=== PATIENT | female | born 1965 | race African-American/Black ===

== ENCOUNTER 2017-04-18 12:05 | Inpatient (IN) | payer BC ==
[2017-04-17 14:13] VITALS: BMI 38.5
[2017-04-18] MEDS ORDERED: ACETAMINOPHEN INJECTION 100 ML IVPB ONE (13:21)
[2017-04-18] MEDS ORDERED: LIDOCAINE HCL/PF 2% SDV 5ML VIAL ONE (13:35)
[2017-04-18] MEDS ORDERED: ePHEDrine SULFATE 50 MG/1 ML AMPULE ONE (13:35)
[2017-04-18] MEDS ORDERED: DEXAMETHASONE SOD PHOSPHATE 4 MG/1 ML VIAL ONE (13:35)
[2017-04-18] MEDS ORDERED: SUCCINYLCHOLINE CHLORIDE 200 MG/10 ML VIAL ONE (13:36)
[2017-04-18] MEDS ORDERED: ROCURONIUM BROMIDE 50 MG/5 ML VIAL ONE (13:36)
[2017-04-18] MEDS ORDERED: PROPOFOL 20 ML ONE ×3 (13:36)
[2017-04-18] MEDS ORDERED: CLINDAMYCIN 900 MG PREMIX BAG IVPB ONE (14:00)
[2017-04-18] MEDS ORDERED: BUPIVACAINE HCL/PF 0.5% (5MG/ML) 10 ML VIAL IJ ONE ×2 (14:30→14:40)
[2017-04-18] MEDS ORDERED: GLYCOPYRROLATE 0.2 MG/1 ML VIAL ONE (14:35)
[2017-04-18] MEDS ORDERED: NEOSTIGMINE METHYLSULFATE 0.5 MG/ML - 10 ML MDV ONE (14:35)
[2017-04-18] MEDS ORDERED: oxyCODONE HCL 5 MG TABLET PO PRN (14:59)
[2017-04-18] MEDS ORDERED: SODIUM CHLORIDE 1,000 ML IV SCH (15:00)
[2017-04-18] MEDS ORDERED: ONDANSETRON 4 MG/2 ML VIAL IVPUSH PRN (15:01)
--- NOTE | 2017-04-18 15:15 | OP ---
Operative Note - Note: Operative Date: 04/18/17 Pre-Operative Diagnosis: Vomiting. GERD. Malfunctioning implantable device secondary to Gastric Band Operation: Removal of Gastric Band plus subcutaneous port component. Laparoscopic Lysis of Adhesions. Diagnostic Laparoscopy Findings: Gastric Band with much adhesions around upper stomach. All adhesions lysed and greater curve wrap dissected off the stomach wall Post-Operative Diagnosis: Same as Pre-op (aabdominal adhesions; fibrous capsule around stomach) Surgeon: Jesus Finn Senior [employer] Consultant: Francisco Vasquez Anesthesia: General Specimens Removed: Gastric Band plus sub-Q component Estimated Blood Loss (mls): 20 Operative Report Dictated: Yes
[2017-04-18] MEDS ORDERED: ENOXAPARIN NA (PORCINE) 40 MG/0.4 ML DISP.SYRIN SQ ONE (15:30)
--- NOTE | 2017-04-18 16:05 | OP ---
DATE OF OPERATION: 04/18/2017 PREOPERATIVE DIAGNOSES: 1. Vomiting. 2. Gastroesophageal reflux disease. 3. Malfunctioning implantable device secondary to gastric band. POSTOPERATIVE DIAGNOSES: 1. Vomiting. 2. Gastroesophageal reflux disease. 3. Malfunctioning implantable device secondary to gastric band. 4. Abdominal adhesions. PROCEDURE PERFORMED: 1. Removal of gastric band plus subcutaneous port component. 2. Laparoscopic lysis of adhesions. 3. Diagnostic laparoscopy. OPERATING SURGEON: Jesus Finn MD ACTION FINISHER: Francisco Vasquez MD ANESTHESIA: General. OPERATIVE PROCEDURE: The patient was brought into the operating room, placed on the OR table in the supine position. All precautions were taken initially including padding for the back and the feet, and Venodyne boots were placed on both lower extremities. At that point, the abdomen was prepped and draped in the usual manner. A Veress needle was placed in the left upper quadrant, and a pneumoperitoneum was established. A number 12 bladeless trocar was placed in the left upper quadrant. Through that trocar, a laparoscopic camera was placed. Under direct vision, a number 5 and 15 bladeless trocars were placed in the right upper quadrant, and a number 5 bladeless trocar was placed below the left costal margin. A Nelly retractor was then placed in the epigastrium to retract the left lobe of the liver. Patient was then placed in a 20-degree reverse Trendelenburg position by the Anesthesia Department. At this point, the band tubing going to the band was noticed, and this was followed to the band around the upper part of the stomach. With the operations and intelligence assistant surgeon retracting the band tubing to the patient's left side, the operating surgeon was able to dissect the scar tissue and the adhesions off of the band on the lesser curvature of the band. This was continued until the band on the lesser curvature was in full view. At this juncture, the operating surgeon pulled the band tubing towards the patient's right side as the operations and intelligence assistant surgeon retracted the stomach inferiorly. The scar tissues then which were the fibrous capsule and adhesions over the band on the greater curvature side were removed with electrocautery until the entire band was in full view. At this juncture, the band was then cut and sprung open, and the band was cut in two, and both pieces were removed from around the stomach and sent off the field to Pathology as specimens. Attention was now directed to the greater curvature wrap. With the operations and intelligence assistant surgeon retracting the stomach inferiorly, the operating surgeon was able to dissect the wrap from the lower part of the stomach, off the upper portion. Once this was done, the stomach now was unraveled and was in full view. At this juncture, Dr. Vasquez stepped out of the case. The operations and intelligence assistant surgeon performed an upper endoscopy. The patient had a previous history on upper endoscopy recently of having difficulty in the body and antrum, and therefore, could not proceed with a sleeve gastrectomy. The details are described in Dr. Vasquez's operative note. Essentially, no leaks were noted coming from the stomach hoffman or stomach. At this juncture, under direct vision, all trocars were removed, and pneumoperitoneum was released. Now, the number 15 trocar site was extended with a scalpel laterally, and dissection continued with electrocautery down to the fibrous capsule on the right upper quadrant port. The fibrous capsule was removed from the port, and then, the entire port was removed from the right anterior rectus muscle and sent off the field to Pathology as a specimen with the rest of the band. At this point, all trocar sites received 0.25% Marcaine, were closed with 4-0 Biosyn in subcuticular fashion. The port site first was closed with 3-0 Vicryl in interrupted fashion on the subcutaneous tissue, followed by 4-0 Biosyn in subcuticular fashion. Dressings were applied, patient awoken from anesthesia and transferred out of the operating room to the recovery room in stable condition. EXPECTED BLOOD LOSS: 20 mL Patient transferred to recovery room in stable condition. Polo [id number]
--- NOTE | 2017-04-18 16:14 | HP ---
DATE OF ADMISSION: 04/18/2017 CHIEF COMPLAINT: Vomiting, GE reflux disease, and mechanical complication of gastric band. HISTORY OF PRESENT ILLNESS: The patient is a 51-year-old woman who complained of approximately 1 year of increased vomiting and GERD secondary to gastric band. The band was placed approximately 9 years ago and was working well until the last year with difficulty had occurred. Despite multiple band adjustments in the office, the patient continued with symptoms and needed removal of the band. The patient was scheduled for sleeve gastrectomy at the same time, but because of an abnormality on the upper endoscopy, it was decided that the band would be removed at this point and the sleeve would be not followed. PAST MEDICAL HISTORY: Significant for slight asthma. PAST SURGICAL HISTORY: Besides the placement of Lap-Band in 2008, also for section x2. ALLERGIES: The patient has allergies to PENICILLIN. MEDICATIONS: Only medication is oral iron. REVIEW OF SYMPTOMS: Neurologic: Within normal limits. Cardiovascular: Within normal limits. Gastrointestinal: Positive for heartburn. Musculoskeletal: Within normal limits. Genitourinary: Within normal limits. PHYSICAL EXAMINATION: General: Awake, alert, in no acute distress. HEENT: No masses noted. Lungs: Clear bilaterally. Heart: Regular sinus rhythm. Abdomen: Soft, nontender on palpation. Well-healed surgical incisions. Extremities: No swelling. No edema noted. IMPRESSION: Vomiting, gastroesophageal reflux disease, and malfunctioning gastric band. PLAN: For removal of gastric band plus the subcutaneous port. Polo [id number]
[2017-04-18] MEDS ORDERED: PROMETHAZINE HCL 25 MG/1 ML VIAL IVPUSH PRN (16:19)
[2017-04-18] MEDS ORDERED: LACTATED RINGERS SOLUTION 1,000 ML IV SCH (16:30)
[2017-04-18 16:35] VITALS: TEMP 97.5
[2017-04-18 19:27] VITALS: BP 132/70; PULSE 80
[2017-04-18] MEDS ORDERED: FAMOTIDINE 20 MG/50 ML IVPB 20 MG/50 ML MG IVPB SCH (22:00)
--- NOTE | 2017-04-19 09:47 | OP ---
Operative Note - Note: Operative Date: 04/19/17 Pre-Operative Diagnosis: Rule out leak/obstruction Operation: EGD/upper endoscopy Post-Operative Diagnosis: Other (No leak/obstruction) Anesthesia: General Specimens Removed: None Estimated Blood Loss (mls): 0 Operative Report Dictated: Yes
--- NOTE | 2017-04-19 10:55 | OP ---
DATE OF OPERATION: 04/18/2017 SURGEON: Hair Vasquez MD PREOPERATIVE DIAGNOSIS: Rule out leak/obstruction after laparoscopic gastric band removal. POSTOPERATIVE DIAGNOSIS: No leak, no obstruction. PROCEDURE: Upper endoscopy, esophagogastroduodenoscopy. ESTIMATED BLOOD LOSS: 0 mL. DRAINS: None. ANESTHESIA: GET. REASON FOR PROCEDURE: This is a 51-year-old female who underwent laparoscopic removal of gastric band components by Dr. Jesus Finn. To further evaluate for leak or obstruction, upper endoscopy was requested. DESCRIPTION OF PROCEDURE: The endoscope was inserted into the patient's mouth, esophagus, and stomach. No leak, no obstruction was identified. The stomach was suctioned and the endoscope removed. The remainder of the procedure was completed by Dr. Finn. HAIR VASQUEZ M.D. [id number]
== END 2017-04-18 19:00 | disposition home or self-care (01) | DRG 336 ==
LOC: JSAMEDAYSX 12:05
PROVIDERS: ADMIT Surgery; ATTEND Surgery
PROC: 0DJ08ZZ Inspection of Upper Intestinal Tract, Via Natural or Artificial Opening Endoscopic (ICD-10-PCS; 2017-04-18)
PROC: 0DP64CZ Removal of Extraluminal Device from Stomach, Percutaneous Endoscopic Approach (ICD-10-PCS; principal; 2017-04-18 13:00)
PROC: 0DNW4ZZ Release Peritoneum, Percutaneous Endoscopic Approach (ICD-10-PCS; 2017-04-18 13:00)
DX: K95.09 Other complications of gastric band procedure (principal); T85.518A Breakdown (mechanical) of other gastrointestinal prosthetic devices, implants and grafts, initial encounter; K21.9 Gastro-esophageal reflux disease without esophagitis; Y83.8 Other surgical procedures as the cause of abnormal reaction of the patient, or of later complication, without mention of misadventure at the time of the procedure; K66.0 Peritoneal adhesions (postprocedural) (postinfection); R11.10 Vomiting, unspecified
CPT/HCPCS: 36415; 84703; 86850; 86900; 86901

== ENCOUNTER 2017-08-09 09:28 | Inpatient (IN) | payer BC, OTHER ==
[2017-08-08 18:07] VITALS: BMI 39.1
[2017-08-09] MEDS ORDERED: BUPIVACAINE HCL/PF 0.5% (5MG/ML) 10 ML VIAL ONE (13:13)
[2017-08-09] MEDS ORDERED: DEXAMETHASONE SOD PHOSPHATE 4 MG/1 ML VIAL ONE (13:42)
--- NOTE | 2017-08-09 13:54 | HP ---
DATE OF ADMISSION: 08/09/2017 CHIEF COMPLAINT: Morbid obesity. HISTORY OF PRESENT ILLNESS: This patient is a 51-year-old woman with a history of morbid obesity for many years despite multiple attempts at dietary weight loss. She received nutrition and psychological evaluation and clearance prior to undergoing elective sleeve gastrectomy surgery. PAST MEDICAL HISTORY: Significant for: 1. Sleep apnea. 2. Hyperlipidemia. 3. Mild asthma. 4. Iron deficiency anemia. 5. Vitamin B12 deficiency. PAST SURGICAL HISTORY: Insertion of Lap Band and removal of Lap Gastric Band. MEDICATIONS: Include: 1. Iron. 2. B12 and ascorbic acid. REVIEW OF SYSTEMS: Neurologic: Within normal limits. Pulmonary: Within normal limits. Gastrointestinal: Occasional acid reflux. Cardiovascular: Within normal limits. Musculoskeletal: Within normal limits. PHYSICAL EXAMINATION: General: A 51-year-old woman, morbidly obese, awake, alert, and in no acute distress. HEENT: No masses palpated. Lungs: Clear bilaterally. Heart: Regular sinus rhythm. Abdomen: Well-healed abdominal wall incision. Soft, nontender on palpation. Extremities: No swelling, no edema noted. IMPRESSION: Morbid obesity. PLAN: OR for laparoscopic vertical sleeve gastrectomy, possible open vertical sleeve gastrectomy. Polo [id number]
[2017-08-09] MEDS ORDERED: BUPIVACAINE HCL/PF 0.5% (5MG/ML) 10 ML VIAL IJ ONE (14:25)
--- NOTE | 2017-08-09 14:39 | OP ---
Operative Note - Note: Operative Date: 08/09/17 Pre-Operative Diagnosis: Morbid Obesity. Sleep Apnea Operation: Laparoscopic Vertical Sleeve Gastrectomy. Diagnostic Laparoscopy Findings: Greater curve sleeve gastrectomy performed with #[address] Post-Operative Diagnosis: Same as Pre-op Surgeon: Jesus Finn Application Trainer: Jair Cordero Anesthesia: General Specimens Removed: Greater curve of stomach Estimated Blood Loss (mls): 50 Operative Report Dictated: Yes
[2017-08-09] MEDS ORDERED: ONDANSETRON 4 MG/2 ML VIAL ONE (14:59)
[2017-08-09] MEDS ORDERED: METOCLOPRAMIDE HCL INJECTION 10 MG/2 ML VIAL ONE (14:59)
[2017-08-09] MEDS: METOCLOPRAMIDE HCL INJECTION 10 MG/2 ML VIAL IVPUSH SCH ×2 (15:00→21:28)
[2017-08-09 15:35] LABS: HEMATOCRIT 34.2 % (32.4-45.2); HEMOGLOBIN 11.1 GM/dL (10.7-15.3); MCHC 32.5 g/dl (32.0-36.0); MEAN CELL VOLUME 77.1 fl (80-96); MEAN PLT VOLUME 8.3 fl (7.5-11.1); PLATELET COUNT 243 K/MM3 (134-434); RBC 4.44 M/mm3 (3.60-5.2); RDW 16.3 % (11.6-15.6); WHITE BLOOD COUNT 8.7 K/mm3 (4.0-10.0)
--- NOTE | 2017-08-09 15:39 | OP ---
DATE OF OPERATION: 08/09/2017 PREOPERATIVE DIAGNOSIS: 1. Morbid obesity. 2. Sleep apnea. POSTOPERATIVE DIAGNOSIS: 1. Morbid obesity. 2. Sleep apnea. 3. Abdominal adhesions. PROCEDURE PERFORMED: 1. Laparoscopic vertical sleeve gastrectomy. 2. Laparoscopic lysis of adhesions. 3. Diagnostic laparoscopy. OPERATING SURGEON: Jesus Finn M.D. AVIONICS SYSTEMS REPAIRER SURGEON: Jair Cordero M.D. ANESTHESIA: General. OPERATIVE PROCEDURE: The patient was brought into the operating room, placed on the OR table in the supine position. All precautions were taken initially including padding for the back and the feet, and Venodyne boots were placed on both lower extremities. At that point, the abdomen was prepped and draped in the usual manner. A Veress needle was placed in the left upper quadrant, and a pneumoperitoneum was established. A number 12 bladeless trocar was placed in the left upper quadrant through the trocar, laparoscopic camera was placed. Under direct vision, a number 15 bladeless trocar was placed just in the midline in a supraumbilical position followed by a number 5 bladeless trocar in the right upper quadrant and number 5 bladeless trocar below the left costal margin. A Nelly liver retractor was then placed in the epigastrium to retract the left lobe of the liver. The patient was then placed in 20-degree reverse Trendelenburg position by anesthesia. The bougie was already placed into the upper stomach and was tested by anesthesia all the way to the distal stomach and showed that there was no obstruction, easily went into the distal antrum. At this point, the bougie was pulled back, and now the pylorus was found on the distal stomach. Then 6 cm were measured proximally and there, and at that point the operating surgeon lifted the stomach toward the anterior abdominal wall, as the tax accounting assistant surgeon retracted the gastrocolic ligament inferiorly. The Ligasure device used to dissect the gastrocolic ligament and the short gastric vessels off the greater curve of the stomach. This continued in a superior direction until the final short gastric vessels between the superior pole of the spleen and the proximal fundus was divided. At this point, there were noted to be adhesions from the previous gastric surgery on the greater curve, attaching it to the undersurface of the liver. These were carefully dissected off the greater curve but also off the liver, so that the stomach would fall down and be in a position to receive the jeff for the completion of the sleeve gastrectomy. Once this was completed, attention was now directed to the stapling portion. At this point, as anesthesia passed the number [address] in the distal stomach, the bougie was held on the lesser curve, and a series of jeff were performed with the first 2 being black load jeff 6 cm in length along the bougie. This was followed by a series of purple load jeff also 6 cm in length and contiguous until the final staple was applied in the left upper quadrant and the greater curve was now completely detached from the lesser curve. It should be noted that prior to firing jeff, both the anterior and posterior hoffman were checked that they were equal, and the area of the esophagogastric junction approximately 1.5 to 2 cm of the serosa remained on the anterior and posterior surfaces. At this juncture, saline was placed around the staple line, anesthesia inserted air in the bougie, and it distended and showed no signs of any obstruction and the air went all the way to the distal stomach, and also there were no signs of any leakage from the staple line. At this point, the resected greater curve was removed through the number 15 trocar site and sent off the field as specimen to pathology. Under direct vision, the number 15 trocar site was closed with Endoclose device to prevent internal hernia and prevent bleeding. Under direct vision, all trocars were removed and pneumoperitoneum released. All trocar sites received 0.25% Marcaine, were closed with 4-0 Biosyn subcuticular fashion. Dressings were applied, patient awoken from anesthesia and transferred out of the operation room to the recovery room in stable condition. ANESTHESIA: General. SURGEON: Jesus Finn M.D. AVIONICS SYSTEMS REPAIRER: Jair Cordero M.D. EXPECTED BLOOD LOSS: 50 mL. DISPOSITION: Patient transferred to recovery room in stable condition. Polo [id number]
[2017-08-09] MEDS ORDERED: PROMETHAZINE HCL 25 MG/1 ML VIAL ONE (16:12)
[2017-08-09] MEDS ORDERED: ACETAMINOPHEN 325 MG TABLET (FP) PO ONE (16:15)
[2017-08-09] MEDS ORDERED: oxyCODONE HCL 5 MG TABLET PO ONE (16:15)
[2017-08-09 16:30] LABS: ALBUMIN 3.1 g/dl (3.4-5.0); ALK PHOS 77 U/L (45-117); ANION GAP 6 (8-16); BILIRUBIN,TOTAL 0.5 mg/dL (0.2-1.0); BLOOD UREA NITROGEN 11 mg/dL (7-18); CALCIUM 8.8 mg/dL (8.5-10.1); CHLORIDE 105 mmol/L (98-107); CO2 28 mmol/L (21-32); CREATININE 0.8 mg/dL (0.55-1.02); GLUCOSE,RANDOM 116 mg/dL (74-106); POTASSIUM 3.9 mmol/L (3.5-5.1); SGOT/AST 23 U/L (15-37); SGPT/ALT 32 U/L (12-78); SODIUM 139 mmol/L (136-145); TOT PROT 7.2 g/dl (6.4-8.2)
[2017-08-09] MEDS: SODIUM CHLORIDE 1,000 ML IV SCH ×2 (17:00→17:35)
[2017-08-09] MEDS ORDERED: PROMETHAZINE HCL 25 MG/1 ML VIAL IVPUSH PRN (17:03)
[2017-08-09] MEDS: ONDANSETRON 4 MG/2 ML VIAL IVPUSH PRN (18:08)
[2017-08-09] MEDS ORDERED: oxyCODONE HCL 5 MG TABLET PO PRN (18:24)
[2017-08-09] MEDS ORDERED: ACETAMINOPHEN 325 MG TABLET (FP) PO PRN (18:25)
[2017-08-09] MEDS: ENOXAPARIN NA (PORCINE) 40 MG/0.4 ML DISP.SYRIN SQ SCH (21:28)
[2017-08-09] MEDS: FAMOTIDINE 20 MG/50 ML IVPB 20 MG/50 ML MG IVPB SCH (21:28)
[2017-08-10] MEDS: METOCLOPRAMIDE HCL INJECTION 10 MG/2 ML VIAL IVPUSH SCH ×3 (03:00→14:54)
[2017-08-10 06:36] LABS: HEMATOCRIT 32.6 % (32.4-45.2); HEMOGLOBIN 10.9 GM/dL (10.7-15.3); MCH 25.1 pg (25.7-33.7); MCHC 33.4 g/dl (32.0-36.0); MEAN CELL VOLUME 75.2 fl (80-96); MEAN PLT VOLUME 8.5 fl (7.5-11.1); PLATELET COUNT 242 K/MM3 (134-434); RBC 4.34 M/mm3 (3.60-5.2); RDW 16.1 % (11.6-15.6); WHITE BLOOD COUNT 11.8 K/mm3 (4.0-10.0)
[2017-08-10 07:15] LABS: ALBUMIN 2.9 g/dl (3.4-5.0); ALK PHOS 69 U/L (45-117); ANION GAP 4 (8-16); BILIRUBIN,TOTAL 0.5 mg/dL (0.2-1.0); BLOOD UREA NITROGEN 11 mg/dL (7-18); CALCIUM 8.5 mg/dL (8.5-10.1); CHLORIDE 107 mmol/L (98-107); CO2 28 mmol/L (21-32); CREATININE 0.7 mg/dL (0.55-1.02); GLUCOSE,RANDOM 108 mg/dL (74-106); POTASSIUM 4.5 mmol/L (3.5-5.1); SGOT/AST 21 U/L (15-37); SGPT/ALT 30 U/L (12-78); SODIUM 139 mmol/L (136-145); TOT PROT 7.2 g/dl (6.4-8.2)
[2017-08-10] MEDS: ENOXAPARIN NA (PORCINE) 40 MG/0.4 ML DISP.SYRIN SQ SCH (10:01)
[2017-08-10] MEDS: FAMOTIDINE 20 MG/50 ML IVPB 20 MG/50 ML MG IVPB SCH (10:02)
[2017-08-10] MEDS: ONDANSETRON 4 MG/2 ML VIAL IVPUSH PRN (10:02)
--- NOTE | 2017-08-10 10:06 | PN ---
Progress Note, Physician Chief Complaint: Pt resting comfortably, pain controlled, no GA complaints. - Current Medication List Current Medications: Active Medications Acetaminophen (Tylenol -) 325 mg PO Q4H PRN PRN Reason: PAIN LEVEL 1 - 3 Enoxaparin Sodium (Lovenox -) 40 mg SQ BID [facility] Last Admin: 08/10/17 10:01 Dose: 40 mg Famotidine/Sodium Chloride (Pepcid 20 Mg Premixed Ivpb -) 20 mg in 50 mls @ 100 mls/hr IVPB BID [facility] Last Admin: 08/10/17 10:02 Dose: 100 mls/hr Sodium Chloride (Normal Saline -) 1,000 mls @ 150 mls/hr IV ASDIR [facility] Last Admin: 08/09/17 17:35 Dose: 150 mls/hr Metoclopramide HCl (Reglan Injection -) 10 mg IVPUSH Q6H [facility] Last Admin: 08/10/17 10:01 Dose: 10 mg Ondansetron HCl (Zofran Injection) 4 mg IVPUSH Q4H PRN PRN Reason: NAUSEA AND/OR VOMITING Last Admin: 08/10/17 10:02 Dose: 4 mg Oxycodone HCl (Roxicodone -) 5 mg PO Q4H PRN PRN Reason: PAIN LEVEL 4 - 6 Promethazine HCl (Phenergan Injection -) 12.5 mg IVPUSH Q6H PRN PRN Reason: NAUSEA-FOR RESCUE AFTER 15 MIN Last Admin: 08/09/17 16:12 Dose: 12.5 mg - Objective Vital Signs: Vital Signs Temperature 97.2 F L 08/10/17 08:53 Pulse Rate 72 08/10/17 08:53 Respiratory Rate 18 08/10/17 08:53 Blood Pressure 139/71 08/10/17 08:53 O2 Sat by Pulse Oximetry (%) 100 08/09/17 22:00 Constitutional: Yes: Well Nourished, No Distress, Calm Musculoskeletal: Yes: WNL Neurological: Yes: WNL, Alert, Oriented Labs: CBC, BMP 08/10/17 05:30 08/10/17 05:30 Assessment/Plan POD#1 s/p Gastric Sleeve under GA. Doing well. D/C from anesthesia care.
[2017-08-10] MEDS ORDERED: oxyCODONE HCL 5 MG TABLET PO PRN (15:04)
--- NOTE | 2017-08-10 15:04 | PN ---
Progress Note (short form) - Note Progress Note: POD#1 Afebrile;VSS No N/V C/O slight abd pain near midline trocar (expected) Tolerating PO clear liquids- 3 oz po TID P/E-Abd- all trocar sites clean,dry UGI-no leak, no obstruction contrast flows into SB WBC-11.8 H/H-10.9/32.6 P- D/C pt home PO clear liquids-3 oz PO 4-5 times per day F/U with Bariatric surgery in 5 days
[2017-08-10] MEDS ORDERED: SODIUM CHLORIDE 1,000 ML IV SCH (15:15)
[2017-08-10 15:36] VITALS: BP 153/77; PULSE 67; TEMP 98.3
--- NOTE | 2017-08-13 15:15 | PATH ---
Surgical Pathology Report Patient Name: YOSHI AZEVEDO Med. Rec. #: [id number] /Age/Gender: 1965 (Age: 51) / F Account: [id number] Location: 4 W TELEMETRY U Taken: 08/09/2017 Received: 08/12/2017 Reported: 08/13/2017 Physicians: Jesus Finn M.D. Specimen(s) Received GREATER CURVATURE STOMACH Clinical History Morbid obesity Final Diagnosis GREATER CURVATURE STOMACH, LAPAROSCOPIC VERTICAL SLEEVE GASTRECTOMY: SEGMENT OF STOMACH WITH MILD CHRONIC GASTRITIS. IMMUNOSTAIN IS NEGATIVE FOR H. PYLORI ORGANISMS. NEGATIVE FOR INTESTINAL METAPLASIA. Electronically Signed Elana Go M.D. Gross Description Received in formalin, labeled "greater curvature stomach," is a 68 gram, 17.0 x 2.5 x 2.0 cm. portion of stomach with a stapled margin of resection. The serosa is potter-vaughn with minimal attached fat. The mucosa is potter-pink with normal folds. No mucosal masses are identified. Chip Drier sections are submitted in one cassette. /08/12/2017 saudi/08/12/2017
== END 2017-08-10 17:16 | disposition home or self-care (01) | DRG 621 ==
LOC: JSAMEDAYSX 11:30 → J4W 17:17
PROVIDERS: ADMIT Surgery; ATTEND Surgery
PROC: 0DNW4ZZ Release Peritoneum, Percutaneous Endoscopic Approach (ICD-10-PCS; 2017-08-09)
PROC: 0DB64Z3 Excision of Stomach, Percutaneous Endoscopic Approach, Vertical (ICD-10-PCS; principal; 2017-08-09 12:00)
DX: E66.01 Morbid (severe) obesity due to excess calories (principal); Z68.39 Body mass index [BMI] 39.0-39.9, adult; G47.30 Sleep apnea, unspecified; K66.0 Peritoneal adhesions (postprocedural) (postinfection); E78.5 Hyperlipidemia, unspecified; D50.9 Iron deficiency anemia, unspecified; E53.8 Deficiency of other specified B group vitamins
CPT/HCPCS: 36415; 74241-TC-FY; 80053; 84703; 85027; 86850; 86900; 86901; 88305-TC; 94760; J7030

== ENCOUNTER 2020-07-01 22:10 | Emergency (ER) | payer BC ==
[2020-07-01] MEDS ORDERED: ACETAMINOPHEN 500 MG TABLET (FP) PO ONE (22:16)
[2020-07-01 22:22] VITALS: BP 148/87; PULSE 83; TEMP 98.8; BMI 18.0
[2020-07-01] MEDS ORDERED: ACETAMINOPHEN 325 MG TABLET (FP) ONE (22:28)
== END 2020-07-01 23:37 | disposition home or self-care (01) ==
LOC: FER 22:10
DX: S50.812A Abrasion of left forearm, initial encounter (principal); S82.002A Unspecified fracture of left patella, initial encounter for closed fracture
CPT/HCPCS: 73562-TC-LT-FY; 99284-25

== ENCOUNTER 2020-09-12 08:00 | Inpatient (IN) | payer BC ==
[2020-09-06 16:46] VITALS: BMI 40.7
[2020-09-12] MEDS ORDERED: BUPIVACAINE HCL/PF 0.25% (2.5MG/ML) 10 ML VIAL ONE (08:53)
[2020-09-12] MEDS ORDERED: MIDAZOLAM HCL 2 MG/2 ML SINGLE DOSE VIAL ONE ×2 (10:30→10:53)
[2020-09-12] MEDS ORDERED: LIDOCAINE HCL/PF 2% SDV 5ML VIAL ONE (10:45)
[2020-09-12] MEDS ORDERED: PROPOFOL 20 ML ONE ×2 (10:54)
[2020-09-12] MEDS ORDERED: KETAMINE HCL 200 MG/20 ML VIAL ONE (10:55)
[2020-09-12] MEDS ORDERED: fentaNYL CITRATE 250 MCG/5 ML VIAL ONE (10:55)
[2020-09-12] MEDS ORDERED: ROCURONIUM BROMIDE 50 MG/5 ML SYRINGE ONE (11:16)
[2020-09-12] MEDS ORDERED: CLINDAMYCIN PHOSPHATE 600 MG/4 ML VIAL ONE (11:18)
[2020-09-12] MEDS ORDERED: NEOSTIGMINE METHYLSULFATE 0.5 MG/ML - 10 ML MDV ONE (11:18)
[2020-09-12] MEDS ORDERED: BUPIVACAINE HCL/PF 2.5 MG/ML - 30 ML VIAL IJ ONE (11:48)
[2020-09-12] MEDS ORDERED: ONDANSETRON 4 MG/2 ML VIAL ONE (13:09)
[2020-09-12] MEDS ORDERED: ONDANSETRON 4 MG/2 ML VIAL IVPUSH PRN (13:22)
[2020-09-12] MEDS ORDERED: HYDROmorphone HCl 2 MG/ML VIAL IVPB PRN ×2 (13:23)
[2020-09-12] MEDS ORDERED: SODIUM CHLORIDE 1,000 ML IV SCH (13:30)
[2020-09-12] MEDS ORDERED: FAMOTIDINE 20 MG/50 ML IVPB 20 MG/50 ML MG IVPB ONE (13:38)
[2020-09-12] MEDS ORDERED: METOCLOPRAMIDE HCL INJECTION 10 MG/2 ML VIAL ONE (13:38)
[2020-09-12] MEDS: METOCLOPRAMIDE HCL INJECTION 10 MG/2 ML VIAL IVPUSH SCH ×3 (13:45→19:19)
[2020-09-12] MEDS ORDERED: PROMETHAZINE HCL 25 MG/1 ML VIAL IVPUSH PRN (13:49)
[2020-09-12 14:07] LABS: HEMATOCRIT 34.3 % (32.4-45.2); HEMOGLOBIN 11.2 GM/dl (10.7-15.3); MCH 24.8 pg (25.7-33.7); MCHC 32.6 g/dl (32.0-36.0); MEAN CELL VOLUME 76.1 fl (80-96); MEAN PLT VOLUME 9.6 fl (7.5-11.1); PLATELET COUNT 220 10^3/uL (134-434); RBC 4.51 M/mm3 (3.60-5.2); RDW 14.7 % (11.6-15.6); WHITE BLOOD COUNT 7.8 K/mm3 (4.0-10.8)
[2020-09-12] MEDS ORDERED: HYDROmorphone HCL 0.5 MG/0.5 ML SYRINGE IVPB PRN (14:07)
[2020-09-12 14:22] LABS: ALBUMIN 3.2 g/dl (3.4-5.0); BILIRUBIN,TOTAL 0.8 mg/dl (0.2-1); CALCIUM 8.3 mg/dl (8.5-10); CREATININE 0.8 mg/dl (0.55-1.3)
[2020-09-12] MEDS: FAMOTIDINE 20 MG/50 ML IVPB 20 MG/50 ML MG IVPB SCH (21:12)
[2020-09-12 22:22] LABS: HEMATOCRIT 35.7 % (32.4-45.2); HEMOGLOBIN 11.6 GM/dl (10.7-15.3); MCHC 32.5 g/dl (32.0-36.0); MEAN PLT VOLUME 9.2 fl (7.5-11.1); PLATELET COUNT 240 10^3/uL (134-434); RBC 4.64 M/mm3 (3.60-5.2); RDW 14.9 % (11.6-15.6); WHITE BLOOD COUNT 8.8 K/mm3 (4.0-10.8)
[2020-09-12 22:40] LABS: ALBUMIN 3.1 g/dl (3.4-5.0); BILIRUBIN,TOTAL 0.6 mg/dl (0.2-1); CALCIUM 8.5 mg/dl (8.5-10); CREATININE 0.7 mg/dl (0.55-1.3); TOT PROT 7.1 g/dl (6.4-8.2)
[2020-09-13] MEDS: METOCLOPRAMIDE HCL INJECTION 10 MG/2 ML VIAL IVPUSH SCH ×4 (01:04→19:47)
[2020-09-13 08:11] LABS: HEMATOCRIT 34.9 % (32.4-45.2); HEMOGLOBIN 11.7 GM/dl (10.7-15.3); MCH 25.7 pg (25.7-33.7); MCHC 33.6 g/dl (32.0-36.0); MEAN CELL VOLUME 76.4 fl (80-96); MEAN PLT VOLUME 9.7 fl (7.5-11.1); PLATELET COUNT 210 10^3/uL (134-434); RBC 4.57 M/mm3 (3.60-5.2); RDW 14.8 % (11.6-15.6); WHITE BLOOD COUNT 10.6 K/mm3 (4.0-10.8)
[2020-09-13] MEDS: FAMOTIDINE 20 MG/50 ML IVPB 20 MG/50 ML MG IVPB SCH ×2 (09:01→21:39)
[2020-09-13] MEDS ORDERED: oxyCODONE HCL 5 MG TABLET PO PRN (14:08)
[2020-09-13] MEDS ORDERED: ACETAMINOPHEN 325 MG TABLET (FP) PO PRN (14:08)
[2020-09-13] MEDS ORDERED: SODIUM CHLORIDE 1,000 ML IV SCH (14:15)
[2020-09-14] MEDS: METOCLOPRAMIDE HCL INJECTION 10 MG/2 ML VIAL IVPUSH SCH ×3 (01:30→06:57)
[2020-09-14 06:51] VITALS: BP 136/55; PULSE 103; TEMP 98.2
== END 2020-09-14 12:03 | disposition home or self-care (01) | DRG 621 ==
LOC: FM/S 08:44
PROVIDERS: ADMIT Surgery; ATTEND Surgery
PROC: 0DNW4ZZ Release Peritoneum, Percutaneous Endoscopic Approach (ICD-10-PCS; 2020-09-12)
PROC: 0DW64CZ Revision of Extraluminal Device in Stomach, Percutaneous Endoscopic Approach (ICD-10-PCS; 2020-09-12)
PROC: 0DJ08ZZ Inspection of Upper Intestinal Tract, Via Natural or Artificial Opening Endoscopic (ICD-10-PCS; 2020-09-12)
PROC: 0DB64Z3 Excision of Stomach, Percutaneous Endoscopic Approach, Vertical (ICD-10-PCS; principal; 2020-09-12 11:28)
PROC: 0FB24ZX Excision of Left Lobe Liver, Percutaneous Endoscopic Approach, Diagnostic (ICD-10-PCS; 2020-09-12 11:28)
DX: E66.01 Morbid (severe) obesity due to excess calories (principal); Z68.41 Body mass index [BMI] 40.0-44.9, adult; R16.0 Hepatomegaly, not elsewhere classified; K66.0 Peritoneal adhesions (postprocedural) (postinfection); K29.50 Unspecified chronic gastritis without bleeding
CPT/HCPCS: 36415; 74240-TC-FY; 80053; 85027; 86850; 86900; 86901; 88305-TC; 94760; Q9967